=== PATIENT | female | born 1965 | race African-American/Black ===

== ENCOUNTER 2019-01-10 13:17 | Emergency (ER) | payer OTHER ==
[~2019-01-10] VITALS: Ht 165.1 cm; Wt 55.0 kg
[2019-01-10] MEDS ORDERED: SODIUM CHLORIDE 0.9% 1,000 ML IV ONE (13:41)
[2019-01-10 14:35] LABS: BASOPHILS % 0.5 % (0.0-2.0); EOSINOPHILS % 3.1 % (0.0-5.0); HEMATOCRIT. 37.8 % (36.0-48.0); HEMOGLOBIN. 12.5 g/dL (12.0-16.0); LYMPHOCYTES % 29.6 % (20.0-50.0); MEAN CORPUSCULAR HEMOGLOBIN 29.1 pg (28.0-32.0); MEAN CORPUSCULAR VOLUME 88.1 fL (81.0-99.0); MEAN PLATELET VOLUME 8.7 fl (7.4-10.4); MONOCYTES % 11.1 % (2.0-8.0); NEUTROPHILS % 55.7 % (40.0-76.0); PLATELET 171 x1000/uL (130-400); RED BLOOD CELL COUNT 4.29 mill/uL (4.2-5.4)
[2019-01-10 14:39] LABS: CHLORIDE 102 mEq/L (98-107)
[2019-01-10 14:43] LABS: ETHANOL BLOOD < 10 mg/dL
[2019-01-10 15:04] LABS: CLARITY URINE CLEAR (CLEAR); COLOR URINE YELLOW (YELLOW); KETONES URINE NEGATIVE (NEGATIVE); LEUKOCYTE ESTERASE URINE 3+ (NEGATIVE); NITRITE URINE NEGATIVE (NEGATIVE); OCCULT BLOOD URINE NEGATIVE (NEGATIVE); PROTEIN URINE NEGATIVE (NEGATIVE); SPECIFIC GRAVITY URINE 1.008 (1.005-1.030); UROBILINOGEN URINE 0.2 E.U./dL (0.2-1.0)
[2019-01-10 15:18] LABS: *AMPHETAMINES SCREEN URINE NEGATIVE (NEGATIVE); *BARBITURATES SCREEN URINE NEGATIVE (NEGATIVE)
[2019-01-10 15:19] LABS: *BENZODIAZEPINES SCREEN URINE NEGATIVE (NEGATIVE); *COCAINE SCREEN URINE NEGATIVE (NEGATIVE); CANNABINOID URINE SCREEN NEGATIVE (NEGATIVE); METHADONE URINE SCREEN NEGATIVE (NEGATIVE); OPIATES URINE SCREEN NEGATIVE (NEGATIVE); PHENCYCLIDINE URINE SCREEN NEGATIVE (NEGATIVE)
[2019-01-10] MEDS ORDERED: PHENYTOIN 100 MG/4 ML UDC PO ONE (15:45)
[2019-01-10] MEDS ORDERED: PHENYTOIN SODIUM EXTENDED 100MG CAPSULE PO ONE (15:45)
[2019-01-10 17:22] VITALS: BP 116/65
== END 2019-01-10 17:23 | disposition home or self-care (01) ==
LOC: ER 13:17
DX: G40.909 Epilepsy, unspecified, not intractable, without status epilepticus (principal); N30.00 Acute cystitis without hematuria
CPT/HCPCS: 36415; 80053; 80185; 80305; 80320; 81003; 82962; 85025; 99283; J7030; G0480

== ENCOUNTER 2019-06-06 19:05 | Emergency (ER) | payer OTHER ==
[~2019-06-06] VITALS: Ht 167.6 cm; Wt 62.0 kg
[2019-06-06] MEDS ORDERED: PHENYTOIN SODIUM 1,000 MG in SODIUM CHLORIDE 0.9% 100 ML IV ONE (21:00)
[2019-06-06 21:30] LABS: BASOPHILS % 0.3 % (0.0-2.0); EOSINOPHILS % 1.4 % (0.0-5.0); HEMATOCRIT. 40.7 % (36.0-48.0); HEMOGLOBIN. 13.6 g/dL (12.0-16.0); LYMPHOCYTES % 19.7 % (20.0-50.0); MEAN CORPUSCULAR HEMOGLOBIN 28.8 pg (28.0-32.0); MEAN CORPUSCULAR VOLUME 86.1 fL (81.0-99.0); MEAN PLATELET VOLUME 8.6 fl (7.4-10.4); MONOCYTES % 5.9 % (2.0-8.0); NEUTROPHILS % 72.7 % (40.0-76.0); PLATELET 189 x1000/uL (130-400); RED BLOOD CELL COUNT 4.73 mill/uL (4.2-5.4); RED CELL DISTRIBUTION WIDTH 13.3 % (11.6-14.6)
[2019-06-06 21:32] LABS: CLARITY URINE CLOUDY (CLEAR); COLOR URINE YELLOW (YELLOW); KETONES URINE NEGATIVE (NEGATIVE); LEUKOCYTE ESTERASE URINE 2+ (NEGATIVE); NITRITE URINE NEGATIVE (NEGATIVE); OCCULT BLOOD URINE TRACE (NEGATIVE); PROTEIN URINE NEGATIVE (NEGATIVE); SPECIFIC GRAVITY URINE 1.017 (1.005-1.030)
[2019-06-06 21:37] LABS: CHLORIDE 105 mEq/L (98-107)
[2019-06-06 21:41] LABS: ETHANOL BLOOD < 10 mg/dL
[2019-06-06 21:52] LABS: *AMPHETAMINES SCREEN URINE NEGATIVE (NEGATIVE); *BARBITURATES SCREEN URINE NEGATIVE (NEGATIVE); *BENZODIAZEPINES SCREEN URINE NEGATIVE (NEGATIVE); *COCAINE SCREEN URINE NEGATIVE (NEGATIVE); METHADONE URINE SCREEN NEGATIVE (NEGATIVE); OPIATES URINE SCREEN NEGATIVE (NEGATIVE)
[2019-06-06 21:53] LABS: CANNABINOID URINE SCREEN NEGATIVE (NEGATIVE); PHENCYCLIDINE URINE SCREEN NEGATIVE (NEGATIVE)
[2019-06-06] MEDS ORDERED: CEFTRIAXONE 1 G PREMIX 50 ML IV ONE (22:00)
[2019-06-06] MEDS ORDERED: IBUPROFEN 600MG TABLET PO ONE (22:15)
[2019-06-06] MEDS ORDERED: CEPHALEXIN 250MG CAPSULE PO ONE (22:15)
[2019-06-06 23:00] VITALS: BP 117/63
== END 2019-06-06 23:33 | disposition home or self-care (01) ==
LOC: ER 19:05
DX: G40.909 Epilepsy, unspecified, not intractable, without status epilepticus (principal); N39.0 Urinary tract infection, site not specified
CPT/HCPCS: 36415; 80053; 80305; 80320; 81003; 85025; 96365; 99283; J1165; J7050; Z7610; G0480

== ENCOUNTER 2023-05-07 18:00 | Emergency (ER) | payer OTHER ==
[~2023-05-07] VITALS: Ht 162.6 cm; Wt 60.0 kg
[2023-05-07 18:05] VITALS: BP 108/67; PULSE 100; RESP 16; TEMP 98.2; O2SAT 97
[2023-05-07] MEDS ORDERED: LEVETIRACETAM 500MG TABLET PO ONE (18:30)
== END 2023-05-07 18:30 | disposition home or self-care (01) ==
LOC: ER 18:00
DX: R56.9 Unspecified convulsions (principal)
CPT/HCPCS: 99283

== ENCOUNTER 2024-11-20 11:39 | Emergency (ER) | payer OTHER ==
[~2024-11-20] VITALS: Ht 167.6 cm; Wt 65.0 kg
[2024-11-20 11:41] VITALS: O2SAT 100
[2024-11-20] MEDS ORDERED: LEVETIRACETAM 500MG PREMIX 100 ML IV ONE (12:00)
[2024-11-20] MEDS ORDERED: TETANUS, DIPHTHERIA, PERTUSSIS VAC/PF 0.5ML (>10YR OLD) IM ONE (12:00)
[2024-11-20] MEDS: LEVETIRACETAM 500MG PREMIX 100 ML IV NR (14:19)
[2024-11-20] MEDS: TETANUS, DIPHTHERIA, PERTUSSIS VAC/PF 0.5ML (>10YR OLD) IM ONE (14:29)
[2024-11-20] MEDS ORDERED: KEPP500 MT (14:35)
[2024-11-20] MEDS ORDERED: IBUPROFEN 600MG TABLET PO ONE (14:45)
[2024-11-20 15:14] VITALS: BP 116/67; PULSE 80; RESP 18; TEMP 36.9; O2SAT 100
== END 2024-11-20 15:34 | disposition home or self-care (01) ==
LOC: ER 11:39
DX: R56.9 Unspecified convulsions (principal); Z79.899 Other long term (current) drug therapy
CPT/HCPCS: 99285; 96365; 70450; 90715; 90471; J1953